=== PATIENT | male | born 2000 | race Caucasian/White ===

== ENCOUNTER 2023-08-16 15:21 | Emergency (ER) | payer OTHER, SELFPAY ==
--- NOTE | ~2023-08-16 | CT_ITS ---
EXAMINATION: CT abdomen pelvis wo con DATE: 08/16/2023 17:01 INDICATION: Left flank pain. TECHNIQUE: Computed tomography (CT) of the abdomen and pelvis was performed without intravenous contr ast. Automated exposure control and iterative reconstruction technique were employed. The dose-length product was 397.81 mGy-cm. COMPARISON: None. FINDINGS: The visualized portions of the lung bases demonstrate mild atelectasis. No pleural effusion . The heart size is normal. No pericardial effusion. The liver, gallbladder, spleen, pancreas, adrena l glands, and right kidney are normal. There is mild left hydronephrosis and hydroureter. There is a 2 mm stone in distal left ureter. There are no pathologically enlarged lymph nodes. There are no dila kay loops of bowel. The appendix is normal. There is no free intraperitoneal fluid. There is mild lum bar spondylosis. IMPRESSION: 1. 2 mm stone in distal left ureter with mild left hydronephrosis and hydroureter. Reviewed, dictated and finalized at location E. IMPRESSION: 1. 2 mm stone in distal left ureter with mild left hydronephrosis and hydrouret er.
[2023-08-16 16:17] VITALS: BP 141/84; PULSE 41; RESP 22; TEMP 36.4; O2SAT 100
--- NOTE | 2023-08-16 17:02 | ED.BACK ---
HPI - Back Pain/Injury General Chief Complaint: Back Pain/Injury Stated Complaint: back pain Time Seen by Provider: 08/16/23 16:36 History of Present Illness HPI Narrative: 22-year-old male no medical problems presents emergency room for evaluation of sudden onset of left flank pain that began yesterday morning. Patient states pain radiates into his hip is worse with movement. He states he cannot find a comfortable position. Denies any dysuria. No history of kidney stones. Denies any known injury or trauma. Related Data Allergies Allergy/AdvReac Type Severity Reaction Status Date / Time No Known Allergies Allergy Unverified 01/16/15 13:24 Review of Systems Review of Systems: ROS unremarkable except for noted in HPI Exam Narrative: GENERAL: Well-appearing, well-nourished, no physical limitations, uncomfortable HEAD: Normocephalic, atraumatic. EYES: Conjunctivae normal, PERRLA and EOMI. CHEST: Clear to auscultation. No respiratory distress. No wheezes rales or rhonchi. HEART: Regular rate and rhythm. No murmur heard. Normal peripheral pulses. ABDOMEN: Soft, nontender, nondistended, normal active bowel sounds. BACK: left CVA tenderness; No cervical/thoracic/lumbar tenderness, step-offs, bony abnormality; FROM EXTREMITIES: Normal range of motion. No edema. No clubbing or cyanosis SKIN: Warm, dry, no rash. No noted wounds NEURO: No focal deficits. Alert and oriented x3. MAEW. CN's II-XI intact bilaterally, normal gait PSYCH: Cooperative. Normal mood and affect. Course Vital Signs Vital signs: Vital Signs Temperature 36.4 C 08/16/23 16:17 Pulse Rate 41 L 08/16/23 16:17 Respiratory Rate 22 H 08/16/23 16:17 Blood Pressure 141/84 H 08/16/23 16:17 Pulse Oximetry 100 08/16/23 16:17 Oxygen Delivery Room Air 08/16/23 16:17 Temperature 36.4 C 08/16/23 16:17 Pulse Rate 41 L 08/16/23 16:17 Respiratory Rate 22 H 08/16/23 16:17 Blood Pressure 141/84 H 08/16/23 16:17 Pulse Oximetry 100 08/16/23 16:17 Oxygen Delivery Room Air 08/16/23 16:17 MDM - Back Pain/Injury MDM Narrative Medical decision making narrative: 22-year-old male came in with sudden onset of left flank pain. CT scan showed a 2 mm distal ureter stone. No evidence of a urinary tract infection. CBC shows leukocytosis, likely due to the stone. patient was given a L of fluid, Toradol Dilaudid which resulted symptoms. Patient was able to void without difficulty. Lab Data 08/16/23 17:05 08/16/23 17:05 Labs: Lab Results 08/16/23 Range/Units 17:05 WBC 16.6 H (4.5-10.0) K/mm3 RBC 4.93 (4.6-6.20) M/mm3 Hgb 14.7 (14.0-18.0) g/dL Hct 43.8 (42.0-52.0) % MCV 88.8 (80-100) fl MCH 29.8 (26-34) pg MCHC 33.6 (32-36) g/dl RDW 13.6 (11.5-14.5) % Plt Count 277 (150-375) k/mm3 MPV 9.3 (7.4-10.4) fl Immature Gran % (Auto) 0.4 (0-0.5) % Neut % (Auto) 82.5 H (45.5-73.1) % Lymph % (Auto) 9.9 L (18.3-44.2) % [place] % (Auto) 6.8 (2.6-8.5) % Eos % (Auto) 0.2 (0-4.4) % Baso % (Auto) 0.2 (0.2-1.2) % Lymph # (Auto) 1.64 (0.9-3.2) K/mm3 [place] # (Auto) 1.1 H (0.1-0.6) K/mm3 Eos # (Auto) 0.0 (0-0.3) K/mm3 Baso # (Auto) 0.0 (0.0-0.1) K/mm3 Abs Immat Gran (auto) 0.06 H (0.00-0.031) K/mm3 Absolute Neuts (auto) 13.7 H (1.3-6.7) K/mm3 Absolute Nucleated RBC 0.000 (0.0-0.012) K/mm3 Nucleated RBC % 0.0 (0.0-0.2) % Sodium 137 (137-145) mmol/L Potassium 4.4 (3.4-5.0) mmol/L Chloride 103 (98-107) mmol/L Carbon Dioxide 22 (22-30) mmol/L Anion Gap 12 (4-12) mmol/L BUN 16 (9-20) mg/dL Creatinine 1.10 (0.7-1.3) mg/dL Estim Creat Clear Calc 93 ml/min Estimated GFR > 60 (59 - ) Glucose 108 (65-110) mg/dL Calcium 9.4 (8.4-10.2) mg/dL Total Bilirubin 1.8 H (0.2-1.3) mg/dL AST 32 (17-59) U/L ALT 31 (6-50) U/L Alkaline Phosphatase 79 (38-126) U/L Total Protein 8.0 (6.3-8.2) g/dL Albumin
[2023-08-16] MEDS: KETOROLAC 30 MG/ML VIAL (*BKC) IV PUSH (17:06)
[2023-08-16] MEDS: SODIUM CHLORIDE 0.9% IV 1,000 ML 999 ML IV CONT (17:06)
[2023-08-16] MEDS: HYDROmorphone HCL INJ (*CRX) 1 MG/ML SYR IV PUSH (17:06)
[2023-08-16 17:17] LABS: Basophils Percent Auto 0.2 % (0.2-1.2); Eosinophils Percent Auto 0.2 % (0-4.4); Hematocrit 43.8 % (42.0-52.0); Hemoglobin 14.7 g/dL (14.0-18.0); Immature Granulocyte Absolute 0.06 K/mm3 (0.00-0.031); Immature Granulocyte Percent A 0.4 % (0-0.5); Lymphocytes Absolute Auto 1.64 K/mm3 (0.9-3.2); Lymphocytes Percent Auto 9.9 % (18.3-44.2); Mean Corpuscular HGB Conc 33.6 g/dl (32-36); Mean Corpuscular Hemoglobin 29.8 pg (26-34); Mean Corpuscular Volume 88.8 fl (80-100); Mean Platelet Volume 9.3 fl (7.4-10.4); Monocytes Absolute Auto 1.1 K/mm3 (0.1-0.6); Monocytes Percent Auto 6.8 % (2.6-8.5); Neutrophils Absolute Auto 13.7 K/mm3 (1.3-6.7); Neutrophils Percent Auto 82.5 % (45.5-73.1); Platelet Count Result 277 k/mm3 (150-375); Red Blood Count 4.93 M/mm3 (4.6-6.20); Red Cell Distribution Width 13.6 % (11.5-14.5); White Blood Count 16.6 K/mm3 (4.5-10.0)
[2023-08-16 17:26] LABS: Alanine Aminotransferase 31 U/L (6-50); Alkaline Phosphatase 79 U/L (38-126); Anion Gap 12 mmol/L (4-12); Aspartate Amino Transferase 32 U/L (17-59); Bilirubin,Total 1.8 mg/dL (0.2-1.3); Blood Urea Nitrogen 16 mg/dL (9-20); Calcium 9.4 mg/dL (8.4-10.2); Carbon Dioxide 22 mmol/L (22-30); Chloride 103 mmol/L (98-107); Estimated CRCL calculation 93 ml/min; Estimated Glomerular Filt Rate > 60; Glucose 108 mg/dL (65-110); Lipase 56 U/L (23-300); Potassium 4.4 mmol/L (3.4-5.0); Sodium 137 mmol/L (137-145)
[2023-08-16 17:44] LABS: Appearance Urine Turbid (Clear); Bacteria Urine None Seen /hpf; Bilirubin Urine 1+ (Negative); Blood Urine Non-Hemolyzed Trace (Negative); Color Urine Dark Yellow (Yellow); Glucose Urine UA Negative (Negative); Ketones Urine 1+ mg/dL (Negative); Leukocyte Esterase Ur Trace LEU/UL (Negative); Need Manual Microscopic Reviewed; Nitrate Urine Negative (Negative); Protein Urine 1+ mg/dL (Negative); Specific Grav Ur 1.035 (1.001-1.035); Squamous Epithelial Cell Urine None Seen /hpf (Few); WBC Urine 21-50 /hpf (0-3); pH Urine 5.5 (5.0-9.0)
[2023-08-16 17:57] LABS: Add Urine Microscopic? YES
[2023-08-16 18:10] VITALS: BP 138/88; PULSE 60; RESP 16; O2SAT 98
== END 2023-08-16 18:24 | disposition home or self-care (01) ==
PROVIDERS: Emergency Provider Nurse Practitioner Family; PCP Family Medicine
DX: N13.2 Hydronephrosis with renal and ureteral calculous obstruction (principal)
CPT/HCPCS: 36415; 74176; 80053; 81001; 83690; 85025; 87086; 96361; 96374; 96375; 99284; J1170; J1885; J7030